=== PATIENT | male | born 1955 | race Caucasian/White ===

== ENCOUNTER 2024-08-11 15:30 | Emergency (ER) | payer OTHER ==
[2024-08-11] MEDS ORDERED: Naloxone 0.4 MG/ML SDV IVPUSH PRN (16:13)
[2024-08-11] MEDS: fentaNYL 100 MCG/2 ML SDV IVPUSH ONE (16:37)
[2024-08-11] MEDS: Ondansetron 4 MG/2 ML SDV IVPUSH ONE (16:37)
[2024-08-11] MEDS: Sodium Chloride 0.9% 1,000 ML IV ONE (16:38)
[2024-08-11] MEDS: Propofol 200 MG/20 ML SDV IVPUSH ONE (17:01)
[2024-08-11] MEDS: Acetaminophen/oxyCODONE 325-5 MG Tab PO ONE (18:08)
== END 2024-08-11 18:10 | disposition home or self-care (01) ==
LOC: JD.ED 15:30
DX: S43.015A Anterior dislocation of left humerus, initial encounter (principal); S40.811A Abrasion of right upper arm, initial encounter; G89.29 Other chronic pain; Z88.2 Allergy status to sulfonamides; Z91.048 Other nonmedicinal substance allergy status; Z79.51 Long term (current) use of inhaled steroids; Z79.899 Other long term (current) drug therapy; X58.XXXA Exposure to other specified factors, initial encounter
CPT/HCPCS: 23650; 73020; 96374; 96375; 99152; 99283; A9270; J2405; J2704; J3010; J7030; 23655